=== PATIENT | female | born 1960 | race Caucasian/White ===

== ENCOUNTER 2024-10-22 18:30 | Emergency (ER) | payer OTHER ==
[~2024-10-22] VITALS: Ht 157.5 cm; Wt 72.1 kg
[2024-10-22 18:34] VITALS: O2SAT 97
[2024-10-22 18:57] VITALS: TEMP 98.6; O2SAT 99
[2024-10-22 22:26] VITALS: BP 117/70; PULSE 83; RESP 16
[2024-10-22] MEDS: HYDROCODONE/ACETAMINOPHEN 5/325MG TABLET PO STA (22:26)
[2024-10-23] MEDS ORDERED: NAPR-681 PO
[2024-10-23] MEDS ORDERED: HYDR-4001 MT
== END 2024-10-23 00:20 | disposition home or self-care (01) ==
LOC: ER 18:30
DX: S00.93XA Contusion of unspecified part of head, initial encounter (principal); M54.2 Cervicalgia; E11.9 Type 2 diabetes mellitus without complications; Z98.890 Other specified postprocedural states; S40.021A Contusion of right upper arm, initial encounter; W19.XXXA Unspecified fall, initial encounter; Y93.89 Activity, other specified; Y92.512 Supermarket, store or market as the place of occurrence of the external cause; Y99.8 Other external cause status
CPT/HCPCS: 29105; 73060; 73090; 73100; 99284